=== PATIENT | female | born 1935 | race Caucasian/White ===

== ENCOUNTER 2018-10-21 16:31 | Emergency (ER) | payer OTHER ==
[~2018-10-21] VITALS: Ht 154.9 cm; Wt 63.5 kg
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
[2018-10-21 17:30] VITALS: BP 104/56
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
== END 2018-10-21 19:00 | disposition home or self-care (01) ==
LOC: ER 16:31
DX: S40.022A Contusion of left upper arm, initial encounter (principal); S00.03XA Contusion of scalp, initial encounter; F03.90 Unspecified dementia, unspecified severity, without behavioral disturbance, psychotic disturbance, mood disturbance, and anxiety; Y08.89XA Assault by other specified means, initial encounter; Y93.89 Activity, other specified; Y92.128 Other place in nursing home as the place of occurrence of the external cause; Y99.8 Other external cause status
CPT/HCPCS: 70450; 72125; 73030; 99284-25

== ENCOUNTER 2018-11-05 12:27 | Emergency (ER) | payer OTHER ==
[~2018-11-05] VITALS: Ht 160 cm; Wt 68.9 kg
[2018-11-05 13:01] LABS: BASO # 0.1 x10^3/uL (0.0-0.2); BASO % 1 % (0-3); EOS # 0.2 x10^3/uL (0.0-0.7); EOS % 2 % (0-3); HEMATOCRIT 42.3 % (36.0-47.0); HEMOGLOBIN 13.8 g/dL (12.0-15.5); LYMPH # 4.3 x10^3/uL (1.0-4.8); LYMPH % 52 % (24-48); MEAN CORPUSCULAR HEMOGLOBIN 30 pg (25-35); MEAN CORPUSCULAR HGB CONC 33 g/dL (31-37); MEAN CORPUSCULAR VOLUME 93 fL (79-100); MONO # 0.9 x10^3/uL (0.0-1.1); MONO % 10 % (0-9); NEUT # 2.9 x10^3/uL (1.8-7.7); NEUT % 34 % (31-73); PLATELET COUNT 337 x10^3/uL (140-400); RED BLOOD COUNT 4.57 x10^6/uL (3.50-5.40); RED CELL DISTRIBUTION WIDTH 14.5 % (11.5-14.5); WHITE BLOOD COUNT 8.3 x10^3/uL (4.0-11.0)
[2018-11-05 13:11] LABS: CALCIUM 8.7 mg/dL (8.5-10.1); CREATININE 0.9 mg/dL (0.6-1.0); GFR 59.9
[2018-11-05 13:17] LABS: ALBUMIN 2.5 g/dL (3.4-5.0); ALBUMIN/GLOBULIN RATIO 0.7 (1.0-1.7); TOTAL BILIRUBIN 0.2 mg/dL (0.2-1.0); TOTAL PROTEIN 6.3 g/dL (6.4-8.2)
--- NOTE | 2018-11-05 13:30 | RAD ---
Chest radiograph 11/05/2018 12:45 PM INDICATION: Altered mental status COMPARISON: None available TECHNIQUE: Portable upright frontal view of the chest is provided. FINDINGS: The cardiomediastinal silhouette is within normal limits. There are no pleural effusions. There is no pulmonary vascular congestion. There is no pneumothorax. Patchy interstitial changes are identified at the left lung base which may represent pulmonary infiltrate in the appropriate clinical setting. Mild hilar prominence may reflect prominent pulmonary vasculature versus lymphadenopathy. No significant osseous abnormality is identified. IMPRESSION: Patchy interstitial changes at the left lung base may represent pulmonary infiltrate versus atelectasis and/or scarring. Mild bilateral hilar prominence may reflect prominent pulmonary vasculature versus lymphadenopathy. Electronically signed by: Susan Long MD (11/05/2018 1:27 PM) [facility]
--- NOTE | 2018-11-05 14:08 | EKG ---
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
[2018-11-05 14:17] LABS: BILIRUBIN,URINE NEGATIVE (NEG); CLARITY,URINE CLEAR; COLOR,URINE YELLOW; NITRITE,URINE POSITIVE (NEG); PH,URINE 6.5; PROTEIN,URINE NEGATIVE (NEG-TRACE)
[2018-11-05 14:25] LABS: BACTERIA,URINE MANY /HPF (0-FEW); SQUAMOUS EPITHELIAL CELL,UR FEW /LPF
--- NOTE | 2018-11-05 14:30 | RAD ---
CT Head without contrast 11/05/2018 12:45 PM Indication: Altered mental status Comparison: CT head without contrast October 21, 2018 Findings: No intracranial hemorrhage is seen. No evidence of acute territorial infarct is seen. Note that CT is limited in sensitivity for acute ischemia. Age-related atrophic changes are noted. There is patchy periventricular and deep white matter hypoattenuation which is nonspecific, but most commonly relates to chronic small vessel disease. No abnormal extra axial fluid collection is identified. No mass effect or midline shift is seen. No acute osseous abnormalities are seen. Impression: 1. No acute intracranial process identified 2. Age-related atrophy, and evidence of chronic small vessel disease as described CT DOSING PQRS STATEMENT: One or more of the following individualized dose reduction techniques were utilized for this examination: 1. Automated exposure control 2. Adjustment of the mA and/or kV according to patient size 3. Use of iterative reconstruction technique Electronically signed by: Anthony Perales MD (11/05/2018 2:27 PM) [facility]
[2018-11-05] MEDS ORDERED: LEVO750T31 PO (14:37)
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
[2018-11-05] MEDS ORDERED: cefTRIAXone IV Push 1 GM VIAL. IVP ONE (15:00)
[2018-11-05] MEDS ORDERED: IV NORMAL SALINE 1000ML BAG 1,000 ML IV ONE (15:15)
[2018-11-05 16:01] VITALS: BP 97/60
== END 2018-11-05 18:02 | disposition home or self-care (01) ==
LOC: ER 12:27
DX: N39.0 Urinary tract infection, site not specified (principal); R41.82 Altered mental status, unspecified; F41.9 Anxiety disorder, unspecified; J44.9 Chronic obstructive pulmonary disease, unspecified; K21.9 Gastro-esophageal reflux disease without esophagitis; F20.9 Schizophrenia, unspecified; F32.9 Major depressive disorder, single episode, unspecified; M06.9 Rheumatoid arthritis, unspecified
CPT/HCPCS: 36415; 70450; 71045; 80053; 81001; 84484; 85025; 87086; 87186; 93005; 96361; 96374; 99285; J0696; J7030

== ENCOUNTER 2019-07-22 19:54 | Emergency (ER) | payer OTHER ==
[~2019-07-22] VITALS: Ht 152.4 cm; Wt 54.5 kg
[~2019-07-22 19:54] MED LIST: LEVO750T31 PO
--- NOTE | 2019-07-22 20:05 | PHYS DOC ---
Past Medical History Past Medical History: Anemia, Anxiety, COPD, Dementia, Depression, GERD, Schizophrenia Additional Past Medical Histor: ALZHEIMERS,ANOREXIA,RA,OBSESSIVE/COMPULSIVE DISORDER,INSOMNIA Past Surgical History: Other Additional Past Surgical Histo: UNKNOWN Smoking Status: Never Smoker Alcohol Use: None Drug Use: None General Adult HPI: HPI: 83-year-old female with significant history of COPD, GERD, schizophrenia, anemia, dementia, who presents from nursing facility for the evaluation of need for IV fluids. The nursing facility states that the patient is dehydrated. The facility physician ordered IV fluid, though the outside facility was unable to obtain IV access. She was subsequently transferred to this facility. The patient has no acute medical complaints. Review of Systems: Review of Systems: Review of systems limited secondary to baseline dementia, possibly uncooperativeness being a contributing factor. Heart Score: Risk Factors: Risk Factors: DM, Current or recent (<one month) smoker, HTN, HLP, family history of CAD, obesity. Risk Scores: Score 0 - 3: 2.5% MACE over next 6 weeks - Discharge Home Score 4 - 6: 20.3% MACE over next 6 weeks - Admit for Clinical Observation Score 7 - 10: 72.7% MACE over next 6 weeks - Early Invasive Strategies Allergies: Allergies: Allergies Coded Allergies Type Severity Reaction Last Updated Verified No Known Drug Allergies 11/05/18 No Physical Exam: PE: Gen: NAD. Cachectic appearing. Head: NC/AT. Eyes: No scleral icterus. No conjunctival injection. PERRLA. ENT: MMM. Posterior OP clear. Neck: Supple. NT. CV: RRR. Peripheral pulses intact. Resp: CTAB. Abd: Soft. NT. ND. MSK: No peripheral cyanosis. No edema. Neuro: A&Ox2. Strength & sensation grossly intact throughout. Skin. Warm. Dry. Psych: Flat affect. EKG: EKG: EKG at 5. Sinus rhythm. Heart rate 68. Normal intervals. Poor R wave progression. No STEMI. Interpreted by me. Radiology/Procedures: Radiology/Procedures: [] Course & Med Decision Making: Course & Med Decision Making Pertinent Labs and Imaging studies reviewed. (See chart for details) In summary, 84-year-old female who was transferred to the ER from nursing facili for evaluation of "dehydration", unable to obtain IV access. IV access was obtained here, receiving IV fluid bolus. Lab work is largely unremarkable. No significant evidence of dehydration. Remains hemodynamically stable throughout her ED course. She does have a urinary tract infection receiving Rocephin 1 g IV. She will be discharged back to her nursing facility with a prescription for Macrobid 100 mg twice daily x7 days. Return precautions given. Harry Disclaimer: Harry Disclaimer: This electronic medical record was generated, in whole or in part, using a voice recognition dictation system. Departure Departure Impression: Primary Impression: UTI (urinary tract infection) Disposition: HOME, SELF-CARE Condition: STABLE Referrals: MARCELA BLANCO MD (PCP) Patient Instructions: Urinary Tract Infection, [id number] Additional Instructions: Your labwork today was largely unrevealing. No significant laboratory evidence of dehydration, though Ms Guerin did receive an IV fluid bolus during her stay in the ER. Ms. Guerin has a urinary tract infection, in a UA specimen that was minimally contaminated. She received rocephin 1 g IV in the ER, with prescription for rita gómez. Return to the ED if you develop new or worsening symptoms. Scripts Nitrofurantoin Monohyd/M-Cryst (MACROBID 100 MG CAPSULE) 100 Mg Capsule 1 CAP PO BID for 7 Days, #14 CAP 0 Refills Prov: HEAVENLY MURO DO 07/22/19 HEAVENLY MURO DO July 22, 2019 20:05
[2019-07-22] MEDS ORDERED: IV NORMAL SALINE 1000ML BAG 1,000 ML IV ONE (20:15)
[2019-07-22 20:46] LABS: BASO # 0.1 x10^3/uL (0.0-0.2); BASO % 1 % (0-3); EOS # 0.2 x10^3/uL (0.0-0.7); EOS % 1 % (0-3); HEMATOCRIT 39.4 % (36.0-47.0); HEMOGLOBIN 12.9 g/dL (12.0-15.5); LYMPH # 3.3 x10^3/uL (1.0-4.8); LYMPH % 27 % (24-48); MEAN CORPUSCULAR HEMOGLOBIN 30 pg (25-35); MEAN CORPUSCULAR HGB CONC 33 g/dL (31-37); MEAN CORPUSCULAR VOLUME 93 fL (79-100); MONO # 1.7 x10^3/uL (0.0-1.1); MONO % 14 % (0-9); NEUT % 57 % (31-73); PLATELET COUNT 276 x10^3/uL (140-400); RED BLOOD COUNT 4.22 x10^6/uL (3.50-5.40); RED CELL DISTRIBUTION WIDTH 13.6 % (11.5-14.5); WHITE BLOOD COUNT 12.3 x10^3/uL (4.0-11.0)
--- NOTE | 2019-07-22 20:55 | RAD ---
Exam: Chest one view INDICATION: Hypotension TECHNIQUE: Frontal view of the chest Comparisons: 11/05/2018 FINDINGS: The cardiomediastinal silhouette and pulmonary vessels are within normal limits. The lung and pleural spaces are clear. IMPRESSION: No acute cardiopulmonary process. Electronically signed by: Bekah Knight MD (07/22/2019 8:52 PM) [id number]
[2019-07-22 20:57] LABS: BILIRUBIN,URINE NEGATIVE (NEG); CLARITY,URINE TURBID; COLOR,URINE YELLOW; NITRITE,URINE POSITIVE (NEG); PROTEIN,URINE 100 mg/dL (NEG-TRACE)
[2019-07-22 20:57] LABS: PLT ESTIMATE ADEQUATE (ADEQUATE)
[2019-07-22 21:02] LABS: BACTERIA,URINE MANY /HPF (0-FEW); WBC,URINE TNTC /HPF (0-4)
[2019-07-22] MEDS ORDERED: cefTRIAXone IV Push 1 GM VIAL. IVP ONE (21:15)
[2019-07-22 23:07] LABS: CALCIUM 8.2 mg/dL (8.5-10.1); CREATININE 1.4 mg/dL (0.6-1.0); GFR 35.9; MAGNESIUM 2.2 mg/dL (1.8-2.4); POTASSIUM 3.7 mmol/L (3.5-5.1)
[2019-07-22] MEDS ORDERED: NITR100C62 PO (23:33)
[2019-07-23] VITALS: BP 134/71
--- NOTE | 2019-07-23 06:39 | EKG ---
[facility] [address] [place] [address] Test Date: 2019-07-22 Test Time: 20:35:16 Pat Name: PASCALE DELEON Department: Room: Gender: F [employer]: : [id number] Requested By: HEAVENLY MURO Order Number: [id number] Reading MD: John Smith Measurements Intervals [place] Rate: 68 P: SD: QRS: -34 QRSD: 78 T: 57 QT: 400 QTc: 426 Interpretive Statements SINUS RHYTHM ABNORMAL LEFT AXIS DEVIATION LOW LIMB LEAD VOLTAGE LEFT ANTERIOR FASCICULAR BLOCK ABNORMAL ECG Electronically Signed On 07-23-2019 8:08:03 CDT by John Smith
== END 2019-07-23 01:25 | disposition home or self-care (01) ==
LOC: ER 19:54
DX: N39.0 Urinary tract infection, site not specified (principal); E86.0 Dehydration; F41.9 Anxiety disorder, unspecified; J44.9 Chronic obstructive pulmonary disease, unspecified; F32.9 Major depressive disorder, single episode, unspecified; K21.9 Gastro-esophageal reflux disease without esophagitis; F20.9 Schizophrenia, unspecified; Z98.890 Other specified postprocedural states
CPT/HCPCS: 36415; 71045; 80048; 81001; 83735; 84484; 85025; 93005; 96361; 96374; 99285; J0696; J7030